=== PATIENT | female | born 1940 | race Caucasian/White ===

== ENCOUNTER 2016-08-27 10:56 | Outpatient (CLI) | payer MEDICARE ==
[2016-08-27 11:50] LABS: eGFR (African) > 60; eGFR (Non-African) > 60
== END 2016-08-27 10:58 ==
LOC: LAB 10:56
PROVIDERS: ATTEND Family Medicine
DX: E78.5 Hyperlipidemia, unspecified (principal); E11.9 Type 2 diabetes mellitus without complications; E03.9 Hypothyroidism, unspecified
CPT/HCPCS: 36415; 80053; 80061; 83036; 84443

== ENCOUNTER 2016-12-25 08:42 | Outpatient (CLI) | payer MEDICARE | END 2016-12-25 08:43 | LOC: LAB 08:42 | PROVIDERS: ATTEND Family Medicine | DX: E11.9 Type 2 diabetes mellitus without complications (principal) | CPT/HCPCS: 36415; 83036 ==

== ENCOUNTER 2017-03-31 08:48 | Outpatient (CLI) | payer MEDICARE | END 2017-03-31 10:00 | LOC: LAB 08:48 | PROVIDERS: ATTEND Family Medicine | DX: E11.9 Type 2 diabetes mellitus without complications (principal) | CPT/HCPCS: 36415; 83036 ==

== ENCOUNTER 2017-07-01 10:15 | Outpatient (CLI) | payer MEDICARE | END 2017-07-01 10:30 | LOC: LAB 10:15 | PROVIDERS: ATTEND Family Medicine | DX: E11.9 Type 2 diabetes mellitus without complications (principal) | CPT/HCPCS: 36415; 83036 ==

== ENCOUNTER 2017-10-28 10:35 | Outpatient (CLI) | payer MEDICARE | END 2017-10-28 10:40 | LOC: LAB 10:35 | PROVIDERS: ATTEND Family Medicine | DX: E11.9 Type 2 diabetes mellitus without complications (principal); E03.9 Hypothyroidism, unspecified | CPT/HCPCS: 36415; 83036; 84443 ==

== ENCOUNTER 2018-03-02 10:24 | Outpatient (CLI) | payer MEDICARE ==
[2018-03-02 11:29] LABS: eGFR (African) > 60; eGFR (Non-African) > 60
== END 2018-03-02 10:46 ==
LOC: LAB 10:24
PROVIDERS: ATTEND Family Medicine
DX: E11.9 Type 2 diabetes mellitus without complications (principal)
CPT/HCPCS: 36415; 80053; 80061; 83036

== ENCOUNTER 2018-07-01 10:37 | Outpatient (CLI) | payer MEDICARE | END 2018-07-01 10:40 | LOC: LAB 10:37 | PROVIDERS: ATTEND Family Medicine | DX: E11.9 Type 2 diabetes mellitus without complications (principal) | CPT/HCPCS: 36415; 83036 ==

== ENCOUNTER 2018-10-28 10:30 | Outpatient (CLI) | payer MEDICARE | END 2018-10-28 10:32 | LOC: LAB 10:30 | PROVIDERS: ATTEND Family Medicine | DX: E11.9 Type 2 diabetes mellitus without complications (principal) | CPT/HCPCS: 36415; 83036 ==

== ENCOUNTER 2019-03-01 09:40 | Outpatient (CLI) | payer MEDICARE ==
[2019-03-01 10:10] LABS: A1C 7.2 % (<5.7)
[2019-03-01 10:32] LABS: HDL 79 mg/dL (>40); eGFR (Non-African) 35
== END 2019-03-01 09:42 ==
LOC: LAB 09:40
PROVIDERS: ATTEND Family Medicine
DX: E11.9 Type 2 diabetes mellitus without complications (principal)
CPT/HCPCS: 36415; 80053; 80061; 83036

== ENCOUNTER 2019-06-01 08:32 | Outpatient (CLI) | payer MEDICARE | END 2019-06-01 09:37 | disposition home or self-care (01) | LOC: LAB 08:32 | PROVIDERS: ATTEND Family Medicine | DX: E11.9 Type 2 diabetes mellitus without complications (principal) | CPT/HCPCS: 36415; 83036 ==

== ENCOUNTER 2019-07-05 10:01 | Outpatient (CLI) | payer MEDICARE ==
[2019-07-05 13:40] LABS: eGFR (Non-African) > 60
== END 2019-07-05 10:06 ==
LOC: LAB 10:01
PROVIDERS: ATTEND Family Medicine
DX: I25.10 Atherosclerotic heart disease of native coronary artery without angina pectoris (principal)
CPT/HCPCS: 36415; 80048; 85027

== ENCOUNTER 2019-08-26 09:42 | Outpatient (CLI) | payer MEDICARE ==
--- NOTE | 2019-08-26 10:35 | Diagnostic Imaging Report ---
PATIENT MR#: [id number] PATIENT PATIENT NAME: JONEL CHRISTENSEN DATE OF : 1940 REFERRING PHYSICIAN: Betsy Yousif EXAM DATE: 08/26/2019 ACCESSION NUMBER: [id number] EXAM DESCRIPTION: US U OR L EXT VEINS UNILAT Exam: Left lower extremity venous Doppler study. History: Calf swelling and tenderness. Doppler interrogation and color Doppler imaging of the venous structures in the left lower extremity are submitted. Spectral Doppler analysis demonstrates spontaneous and augmentable venous flow. Color Doppler imagin g reveals no thrombus formation. The venous structures are compressible. Impression: No sonographic evidence of deep vein thrombosis. Read by: Dr. Phoenix Nava Transcribed by: Transcribed Date: Electronically signed by: Dr. Phoenix Nava Date signed: 08/26/2019 10:34:31 AM
== END 2019-08-26 09:47 ==
LOC: LAB 09:42
PROVIDERS: ATTEND Family Medicine
DX: E11.9 Type 2 diabetes mellitus without complications (principal); E55.9 Vitamin D deficiency, unspecified; M79.89 Other specified soft tissue disorders
CPT/HCPCS: 36415; 82306; 83036